=== PATIENT | female | born 1955 | race Caucasian/White ===

== ENCOUNTER → 2023-07-08 10:03 | Outpatient (REF) | payer MEDICARE, SELFPAY | LOC: RAD 10:03 | PROVIDERS: ATTENDING PHYSICIAN Family Medicine | DX: M81.0 Age-related osteoporosis without current pathological fracture (principal) | CPT/HCPCS: 77080 ==

== ENCOUNTER → 2023-09-30 06:28 | Day surgery (SDC) | payer MEDICARE, SELFPAY | LOC: GI 06:28 | PROVIDERS: ATTENDING PHYSICIAN Internal Medicine Gastroenterology; FAMILY PHYSICIAN Internal Medicine | DX: R19.4 Change in bowel habit (principal); K64.8 Other hemorrhoids; K57.30 Diverticulosis of large intestine without perforation or abscess without bleeding | CPT/HCPCS: 45330 ==

== ENCOUNTER → 2024-01-07 11:13 | Outpatient (REF) | payer MEDICARE, SELFPAY | LOC: WDC 11:13 | PROVIDERS: ATTENDING PHYSICIAN Family Medicine | DX: Z12.31 Encounter for screening mammogram for malignant neoplasm of breast (principal) | CPT/HCPCS: 77063; 77067 ==

== ENCOUNTER → 2024-03-18 11:01 | Outpatient (REF) | payer SELFPAY | LOC: RAD 11:01 | PROVIDERS: ATTENDING PHYSICIAN Family Medicine | DX: Z00.00 Encounter for general adult medical examination without abnormal findings (principal); E78.00 Pure hypercholesterolemia, unspecified | CPT/HCPCS: 75571 ==

== ENCOUNTER 2024-11-07 15:59 | Inpatient (IN) | payer MEDICARE, SELFPAY ==
[2024-11-07] VITALS (20 sets, daily range): BP systolic 117–221; BP diastolic 66–95; BMI 20.6
--- NOTE | 2024-11-07 15:08 | ED.GENMED ---
History of Present Illness
General
Chief Complaint: Dizziness
Source: patient
Exam Limitations: none
Time Seen by Provider: 11/07/24 15:00
Nursing documentation reviewed up to this point in time: agreed with
History of Present Illness
History of Present Illness:
Patient presents to ED secondary to sudden onset of dizziness starting around 1:30 PM, shortly after having completed grouting inside her house. Since then, shortly afterwards, patient also started to experience left lower leg numbness/heaviness
sensation. Denies nausea or vomiting. Denies headache. Denies difficulty with speech. Denies chest pain or palpitations. Denies neck pain. Denies recent illness. Denies previous history of similar symptoms. Denies any abnormal sensation in
her arms.
Past History
Past History
ED Past Medical History: Other (migraines, tonie-facial spasms, diverticulitis)
ED Past Surgical History: Bowel resection, Orthopedic and Other (Laparoscopy/endometriosis)
Social History
Tobacco: Non-smoker
Personal:
Living: with family
Employment: Employed
Family History
Family History: Other (Noncontributory); Negative Early CAD
Review of Systems
Review of Systems
Allergies reviewed?: Yes
All Other Systems: ROS reviewed and negative except as documented in HPI and ROS
Constitutional: Reports no symptoms; Denies fever
Cardiac: Reports no symptoms
ABD/GI: Reports no symptoms
Musculoskeletal: Reports no symptoms
Skin: Reports no symptoms
Neurological: Reports dizzy, weakness and numbness; Denies headache
Phy Exam
Physical Exam
Physical Exam:
Physical Exam
General: mild distress, not acutely ill. afebrile
Head: nc/at. eomi
Neck: supple. normal range of motion.
Heart: s1/s2 regular rate and rhythm
Lungs: no acute respiratory distress. clear bilaterally
Abdomen: normal bowel sounds. not tender.
Neuro: alert and oriented x 3. normal speech. LLE motor weakness (4/5). no facial droop
Skin: no rash
Psychiatric: well kept. interactive and cooperative
Extremities: no edema. no calf tenderness.
Course
Orders/Labs/Results
Orders:
Orders
11/07/24 14:58
CT HEAD STROKE ALERT W/o Cont Urgent
Comment:
Reason For Exam: dizziness, spinning sensation, numb/tingling LLE
11/07/24 14:59
Electrocardiogram (*1) Urgent
Reason for Study: Other
Other Reason for Exam: Possible Stroke
Cardiac Monitoring- Treatment ONCE
EKG- Treatment ONCE
Vital Signs As Directed
Frequency: Other
Weight As Directed
Frequency: Once
Comment: ZERO STRETCHER SCALE FOR ACCURATE WEIGHT
11/07/24 15:07
CT HEAD/NECK ANG STROKE ALERT Urgent
Comment:
Reason For Exam: dizziness with LLE weakness/numbness
11/07/24 15:14
Complete Blood Count/With Diff Urgent
Comprehensive Metabolic Panel Urgent
PTT Urgent
Prothrombin Time Urgent
Troponin I Urgent
11/07/24 15:16
HydrALAZINE [Apresoline] 10 mg IV NOW STA
Tenecteplase [Tnkase] 13 mg Syringe [Syringe Non-Pump] 0 ml IV NOW
Provider explained risk/benefits to patient &/or caregiver?: Yes
Blood pressure: 196/94
11/07/24 15:20
HydrALAZINE [Apresoline] 20 mg .ROUTE .STK-MED ONE
11/07/24 15:30
MethylPREDNISolone PF [Solu-Medrol Pf] 250 mg IV DAILY
11/07/24 15:44
Admit/Transfer Patient As Directed
Co-Sign Provider:
Level of Care: Inpatient admission
Assign to:: ICU
Physician / Group: Navid
Diagnosis: CVA
Reason for Hospitalization: CVA
Expected length of stay greater than two midnights?: Yes
ELOS- Estimated Length of Stay in days: 2
I certify the patient meets the requirements for IP care: Yes
PRN Pain Medication Management As Directed
May give lesser potent ordered pain med per pt: Yes
preference::
Protocol:: Medication orders for pain may be administered in a
manner that supports deferring to patient preference
when the pt is:
- Requesting an ordered lesser potent pain medication.
Least to most potent pain medications are defined
as: acetaminophen < NSAID < tramadol < opioids
(morphine, oxycodone, hydromorphone).
- Requesting a lesser dose of the same medication IF
ORDERED.
- Requesting a less intrusive route of administration
if both routes are prescribed by the provider (PO <
IV).
11/07/24 15:45
Code Status As Directed
Resuscitation Status: Full Code
11/07/24 15:57
Add On- LAB Routine
Tests Added?: PTH
11/07/24 15:58
Urinalysis Reflex To Culture Urgent
Date Specimen was Collected: 11/07/24
Time Specimen was Collected: 15:48
Urine Microscopic Reflex Cult Urgent
Urine Culture Urgent
PAUL Source: U
Specimen Description:
Date Specimen was Collected: 11/07/24
Time Specimen was Collected: 15:48
11/07/24 16:38
Acetaminophen [Tylenol] 650 mg PO Q4HPRN PRN
Labetalol HCl [Trandate] 10 mg IV Q6HPRN PRN
11/07/24 16:38
Echo 2D MMode Color/Doppler Routine
Reason for Study: stroke
Electrocardiogram (*1) Routine
Reason for Study: TIA/Stroke
Case Management Consult Once
Case Management Consult: Discharge Planning
DIETARY IP CONSULT Routine
Reason for Consult: stroke/TIA
Baggage Agent Supervisor Consult Routine
Consulting Provider: Rowena Fernando
Was physician already notified: Yes
Reason for consult: CVA
NEUROLOGY CONSULT Urgent
Consulting Provider: Robinson Miles
Was physician already notified: Yes
Reason for consult: CVA
B2B Sales Manager Urgent
MR Brain Without Contrast Routine
Comment: complete 24 hrs post tenecteplase administration
Reason For Exam: possible stroke, status post tenecteplase
Recent pill cam endoscopy?: No
Hemetest Stools As Directed
Comment: hemoccult all stools if patient received tenecteplase
NIH Stroke Scale As Directed
Directions: Other
Comment: NIH stroke Scale to be completed prior to thrombolytic administration, then every 1 hour for 2
hours, then every shift and with change in condition and/or mental status.
Neurological Checks As Directed
Frequency: Per unit guidelines
Additional Instructions:: after start of thrombolytic therapy:
q15min x 2 hrs, q30min x 6 hrs, q1h x 16 hrs, q4h x 24 hrs, then every shift and
with any changes.
Notify MD As Directed
Notify physician if: - Any deterioration, change in neurological status, development of severe headache,
nausea and vomiting, or with any signs of bleeding. (see guidelines for suspected
intracerebral hemorrhage).
- If intracranial hemorrhage is suspected or confirmed by imaging, anticipate need for
osmotic diuretic to maintain euvolemia.
Notify MD As Directed
Notify physician if: Glucose less than 70 or greater than 180.
Anticipate corrective insulin orders.
Notify MD As Directed
Notify physician if: SBP not at goal within 30 minutes of prn LABETALOL administration.
notify provider to initiate continuous infusion of nicardipine or clevidipine.
Notify MD As Directed
Notify physician if: unable to obtain MRI of head within 22-32 hours of tenecteplase administration
- contact Neurology for order for CT of head without contrast
Patient Education As Directed
Type: Stroke education packet
Comment: provide to patient and family
Pneumatic Compression Sleeves As Directed
Type: Knee high
Precautions As Directed
Type of Precautions: Bleeding
Comment: post Bleeding Precaution sign at bedside (if patient received tenecteplase)
Swallow Screening CVA/TIA ONLY As Directed
Comment: NPO until swallow screening completed
If patient FAILS swallow screening:: NPO and Speech consult and aspiration precautions
If patient PASSES swallow screening, diet:: Cholesterol Lowering
Above diet order entered?: Yes- passed screening
Thrombolytic Precautions As Directed
Thrombolytic Precautions:: Kimball bleeding precautions. Minimize invasive procedures and venipunctures,
avoid IM injections and over-handling patient, and check all puncture sites for
bleeding. Assess the patient and notify provider for signs and symptoms of
internal or serious bleeding, such as changes in vital signs or evidence of blood
in the urine or stool.
Additional instructions: Hemocult all stools.
Apply direct pressure or pressure dressing to any compressible puncture sites.
No ABG sampling or Conner insertion after Tenecteplase administration for 24 hours,
unless directed by the Neurologist/Attending.
Vital Signs As Directed
Frequency: q15m
Call for:: BP greater than 180/105 mmHg or less than 100/60 mmHg
Additional Instructions:: after start of thrombolytic therapy:
q15min x 2 hrs, q30min x 6 hrs, q1h x 16 hrs, q4h x 24 hrs, then every shift and
with any changes.
Ot Eval And Treat Routine
Physiatry Consult Routine
Consulting Provider: Thee Duggan
Was physician already notified: Yes
Reason for consult: stroke/TIA
Pt Eval And Treat Routine
Activity Level: Out of Bed-Early Mobility
Speech Therapy Eval & Treat Routine
DX Deep Vein Thrombosis Video Routine
11/08/24 06:00
Cardiovascular Evaluation IN AM
Complete Blood Count/No Diff IN AM
Comprehensive Metabolic Panel IN AM
Comment: If not done in the ED
Glycohemoglobin (HgbA1c) IN AM
Comment: If not done in the ED
Magnesium IN AM
PTT IN AM
Prothrombin Time IN AM
TSH Reflex To Free T4 IN AM
Abnormal Lab Results
11/07/24 11/07/24
15:14 15:58
Lymphocytes % 19.7 L %
(20.5-51.1)
Sodium 132 L mmol/L
(135-145)
Creatinine 0.5 L mg/dL
(0.6-1.0)
Glucose 104 H mg/dl
(70-99)
Calcium 10.3 H mg/dl
(8.4-10.2)
Albumin 5.3 H g/dl
(3.5-5.0)
Urine Ketones 1+ A
(Negative)
Ur Occult Blood Reflex 1+ A
(Negative)
Leukocyte Esterase Rfl 1+ A
(Negative)
Urine Bacteria (Reflex) Moderate A
(Negative)
11/07/24 15:14
11/07/24 15:14
Vital Signs
Initial and Last Documented VS:
Initial Vital Signs
Temp Pulse Resp BP Pulse Ox
97.8 F 72 18 171/95 100
11/07/24 14:51 11/07/24 14:51 11/07/24 14:51 11/07/24 14:51 11/07/24 14:51
Last Documented Vital Signs
Temp Pulse Resp BP Pulse Ox
97.6 F 69 16 149/70 99
11/07/24 16:41 11/07/24 16:30 11/07/24 16:30 11/07/24 16:00 11/07/24 16:30
MDM/Problems Addressed
MDM/Problems Addressed:
Stroke alert activated. Patient evaluated immediately at bedside along with neurology, Dr. Miles. CT/CTA head/neck ordered.
CT head: No acute findings. Patient within treatment window for TNK administration. Bleeding risk, up to 6%, discussed with patient and spouse by Dr. Miles.
Patient will be admitted to ICU for further evaluation and treatment.
Critical care statement: A total of 40 minutes of critical care time was provided for this patient. This includes management of unstable vital signs, evaluation of the patient at bedside, reviewing the patient's pertinent medical records, discussion
with consultants, review of old EKGs and review of pertinent medical records. This time with separate from time utilized to perform the aforementioned documented procedures
*Pulse Oximetry
SaO2: 100
Oxygen Mode of Delivery: Room air
Patient hypoxic: no
*EKG
Interpreted by ED Provider?: Yes
EKG Intrepretation Date: 11/07/24
Heart Rate: 61
Rate: normal
Rhythm: sinus
[place]: normal axis
Interval: normal interval
*Critical Care Note
Total Time (30-74mins, 75-104mins- exclusive of procedures): 40 min
ED Attending Note
-
Portions of this chart may have been created with voice recognition software.� Occasional wrong word or��sound alike� substitutions may have occurred due to the inherent limitations of voice recognition software.
Discharge Plan
Departure
Patient Disposition: Admit
Date of Disposition: 11/07/24
Time of Disposition: 15:28
Admit to: ICU
Presentation/result/management discussed w/ accepting MD/DO: Hospitalist
Discharge Problem:
Dizziness, Acute CVA (cerebrovascular accident)
Interventions
Interventions:
*Risk Screen - Suicide Last Done: 11/07/24 14:51
*General Assessment Last Done: 11/07/24 14:51
*Neglect/Abuse Screening Last Done: 11/07/24 14:55
*ED- Fall Risk Assessment Last Done: 11/07/24 14:55
*ED COVID-19 Vaccine History Last Done: 11/07/24 14:51
*Nursing Disposition Last Done: 11/07/24 16:10
ED- Neurological Assessment Last Done: 11/07/24 15:00
ED- Cardiac Assessment Last Done: 11/07/24 14:55
ED Swallowing Screen Last Done: 11/07/24 15:40
Discharge Date and Time
Discharge Date/Time: 11/07/24 16:10
[2024-11-07] MEDS: TNKASE 2.6 MG IV (15:23)
--- NOTE | 2024-11-07 15:25 | CON.NEURO ---
Neuro Assessment/Plan
Assessment
Acute ischemic stroke, mild L deficits however she is an active swimmer and this would be disabling for her so we decide to TNK even though NIHSS is 1.
the Vertigo is vestibular neuritis on exam so dizziness is not a stroke symptom for LKN
Initial SBP 196 and I ordered hydralazine 10 but recheck it came down to 177 spontaneously, so it was not given
acute vestibular neuritis left ear - constant right beating nystagmus is a cortical correction for the abnormal vestibular signal which are dragging her eyes to the left. Solumedrol 250 daily up to 5 days
Plan
Admit to MICU for 24 hours of frequent neurochecks.�
neurochecks q1, Frequent vital signs Q15min x 2hrs, then Q30min x 6hrs, then Q1H x 16hrs until stable from the start of TNK.�
�tele, accuchecks/ISS. Repeat Head CT in 24 hours
Blood pressure goals: <180/105 and MAP 80-100� in the acute period.� If BP elevated for 2 readings, preferred agents include IV labetalol or nicardipine.� Vasopressors as necessary to maintain MAP and CPP.�
Glucose goals: Maintain euglycemia using sliding scale insulin. If glucose >180 for two consecutive readings, please use MICU insulin protocol.�
Temperature goals: maintain normothermia�
Diagnostic tests: MRI brain without contrast, ECHO with bubble.�
35' crit emergently evaluating patient, physical exam, and independently reviewing Head CT in control room, TNK decision, d/w patient and for TNK consent, orders, documentation, d/w other providers,
Consultation
Order
Date of Consultation: 11/07/24
Requesting Provider: Lara
Reason for Consult: stroke alert
Subjective/Objective
Subjective Data
Date of Service: November 07, 2024
from ED notes:
Patient presents to ED secondary to sudden onset of dizziness starting around 1:30 PM, shortly after having completed grouting inside her house. Since then, shortly afterwards, patient also started to experience left lower leg numbness/heaviness
sensation. Denies nausea or vomiting. Denies headache. Denies difficulty with speech. Denies chest pain or palpitations. Denies neck pain. Denies recent illness. Denies previous history of similar symptoms. Denies any abnormal sensation in
her arms.
patient reports mild dizziness this morning, worsening in the afternoon.
Objective Data
Vital Signs
Temp Pulse Resp BP Pulse Ox
36.6 C 71 18 196/94 100
11/07/24 14:51 11/07/24 15:04 11/07/24 15:04 11/07/24 15:04 11/07/24 15:11
Patient Allergies
environmental Allergy (Uncoded 11/07/24 14:54)
sneezing
Physical Exam
-
AAOx3, speech clear, language intact
VFF, EOMI, face symm
constant RIGHT beating nystagmus. dizziness worsens with right gaze, and ameliorates with left gaze
left pronator drift
LUE/LE subtle weakness
Medications
-
Home Medications
�Medication �Instructions �Recorded
calcium 600 mg (as carbonate)-vit 1 tab PO DAILY 01/30/17
D3 20 mcg (800 unit) chewable
tablet (Caltrate plus D)
cetirizine 10 mg tablet 10 mg PO DAILYPRN PRN allergies 01/30/17
naratriptan 1 mg tablet (Amerge) 1 mg PO DAILYPRN PRN migraine 01/30/17
omega 8-kmc-lmm-fish oil 300 1 cap PO DAILY 01/30/17
mg-1,000 mg capsule (Fish Oil)
valacyclovir 500 mg tablet 500 mg PO DAILYPRN PRN cold sores 01/30/17
denosumab 60 mg/mL subcutaneous 60 mg SQ [id number] 12/06/20
syringe (Prolia)
[2024-11-07 15:33] LABS: Hematocrit 40.4 % (37.0-47.0); Hemoglobin 13.7 g/dL (12.0-16.0); Mean Corp Hgb Conc. 33.9 g/dL (33.0-37.0); Mean Corpuscular Volume 88.8 fL (81.0-99.0); Nucleated Red Blood Cells % 0 %; Platelet Count 311 10^3/uL (130-400); Red Cell Dist. Width 12.1 % (11.5-14.5)
[2024-11-07 15:38] LABS: INR 0.90; PT 12.5 Sec (11.4-14.6)
[2024-11-07 15:39] LABS: APTT 29.3 Sec (23.4-35.0)
[2024-11-07 15:48] LABS: ALT (SGPT) 25 U/L (0-35); AST (SGOT) 28 U/L (14-36); Albumin 5.3 g/dl (3.5-5.0); Alkaline Phosphatase 53 U/L (38-126); Blood Urea Nitrogen 17 mg/dl (7-17); Calcium 10.3 mg/dl (8.4-10.2); Carbon Dioxide 25 mmol/L (22-30); Estimated Creatinine Clearance 72 ml/min; Glucose 104 mg/dl (70-99); Total Protein 8.1 g/dl (6.3-8.2); eGFR > 60.00
--- NOTE | 2024-11-07 15:49 | HPS.HSE ---
Family Physician
-
Family Physician:
Chief Complaint
-
dizziness, LLE numbness
History of Present Illness
69yo F with PMHX of osteoporosis, migraine headaches with occasional aura, atopic D/O came with acute onset of dizziness and vertigo with accompanied LLE numbness and tingling. Started with lightheadedness appr at 12-12:30pm on the day of admission,
then progressed to vertigo. In ED seen by neurologist with stroke code and deemed to be a candidate for TNK. After administration of TNK - LLE numbness resolved. Patient has no other complains, however noticed to have high blood pressure before
admission that is not typical for her. Also feeling nervous and with some shills, however no respiratory, GI or urinary symptoms reported. Has family Hx of stroke in mother
Medical History
Past Medical History
Past Medical History: Reports Other
Additional Past Medical History:
See above
Past Surgical History: Reports None
Social History
Tobacco: Non-smoker
Alcohol: None
Drug: None
Personal:
Family History
Family History: Other (Se above)
Allergies / Home Medications
Allergies reflects when Allergies were last updated in [facility].
Home Medications with original date entered in [facility]
Allergy/Medication List:
Allergies
Allergy/AdvReac Type Severity Reaction Status Date / Time
environmental Allergy sneezing Uncoded 11/07/24 14:54
Home Medications
calcium 600 mg (as carbonate)-vit D3 20 mcg (800 unit) chewable tablet (Caltrate plus D) 1 tab PO DAILY 01/30/17
cetirizine 10 mg tablet 10 mg PO DAILYPRN PRN allergies 01/30/17
naratriptan 1 mg tablet (Amerge) 1 mg PO DAILYPRN PRN migraine 01/30/17
omega 9-mkc-fat-fish oil 300 mg-1,000 mg capsule (Fish Oil) 1 cap PO DAILY 01/30/17
valacyclovir 500 mg tablet 500 mg PO DAILYPRN PRN cold sores 01/30/17
denosumab 60 mg/mL subcutaneous syringe (Prolia) 60 mg SQ [id number] 12/06/20
Review of Systems
-
History Source: Patient
A 12 point ROS was completed and negative except as noted: Yes
Constitutional: Reports See HPI
Physical Exam
Vital Signs
Vital Signs
Temp Pulse Resp BP Pulse Ox
97.8 F 67 12 155/77 100
11/07/24 14:51 11/07/24 15:30 11/07/24 15:30 11/07/24 15:26 11/07/24 15:30
Physical Exam
General: No Apparent Distress, Comfortable and Conversant
HEENT: NormoCephalic, Anicteric and Moist mucous membranes
Respiratory: Clear; No Wheezes or Crackles
Cardiac: S1/S2 and Regular Rhythm; No Bradycardia or Murmur
GI: Soft, Non Tender and Non Distended
Musculoskeletal: No Clubbing, No Cyanosis and No Edema
Skin: Warm; No Rash or Jaundice
Neuro: Awake, Alert, Oriented, AO x 3, No Motor Deficits, Nonfocal/grossly intact and Tremors
Psych: Calm
Laboratory Results
-
11/07/24 15:14
11/07/24 15:14
Laboratory Results
PT 12.5 Sec (11.4-14.6) 11/07/24 15:14
INR 0.90 11/07/24 15:14
APTT 29.3 Sec (23.4-35.0) 11/07/24 15:14
Total Bilirubin 0.5 mg/dl (0.2-1.3) 11/07/24 15:14
AST 28 U/L (14-36) 11/07/24 15:14
ALT 25 U/L (0-35) 11/07/24 15:14
Alkaline Phosphatase 53 U/L (38-126) 11/07/24 15:14
Data Reviewed
-
Lab Data: Labs Reviewed by me
Impression/Plan
-
A/P:
#CVA
s/p TNK
ICU admission
TNK precautions
Neurochecks and if change - CT head stat
Check TSH, HGBa1c, lipids
Neurology consult
MRI brain
Echo and telemetry
CTA without LVO and no clinically significant carotid stenosis. Aberrant origin of the right subclavian artery.
Hold ASA for 24h
start Lipitor 40mg
#Chills
not febrile, no WBC elevation
check UA
#Hypercalcemia
mild
Check PTH
can be dehydration
Chest XR
#Migraines
hold triptan
#Atopic D/O
#Osteoporosis
cont meds upon d/c
DVT ppx SCDs
Full code
I have spent at least 55min critical care time reviewing chart, test results, communication with consultants and providing direct patient care
[2024-11-07 15:55] LABS: Chloride 101 mmol/L (98-107); Potassium 4.4 mmol/L (3.5-5.1); Sodium 132 mmol/L (135-145)
[2024-11-07 16:00] LABS: Troponin I < 0.012 ng/ml
[2024-11-07 16:13] LABS: Urine Character Clear (Clear)
[2024-11-07] MEDS: SOLU-MEDROL PF 250 MG IV (16:21)
[2024-11-07 16:26] LABS: Urine Red Blood Cell 0-2 /HPF (0-2); Urine Squamous Cell 16-20 /LPF (Few)
[2024-11-07 16:51] LABS: Glucose - Point of Care 102 mg/dl (70-99)
--- NOTE | 2024-11-07 18:33 | PTCARENOTE ---
Received pt from ED with CVA diagnosis. TNK given in ED at 1523 with NIH-[address] Miles, Neurologist, for LLE weakness. Upon arrival to ICU, NIHSS 0. Full assessment as charted, HTN continues. at bedside. Pt oriented to unit.
[2024-11-07] MEDS: TYLENOL 650 MG PO (22:16)
[2024-11-08] VITALS (16 sets, daily range): BP systolic 96–128; BP diastolic 43–96; BMI 20.5
--- NOTE | 2024-11-08 00:30 | PTCARENOTE ---
Pt GCS 15, PERRLA 3, TIRADO 5/5, NIH remains 0. OOB to bathroom with assist. Tylenol given for mild headache. Pt resting comfortably. Will monitor.
[2024-11-08 04:28] LABS: INR 0.97; PT 13.2 Sec (11.4-14.6)
[2024-11-08 04:29] LABS: APTT 23.3 Sec (23.4-35.0)
[2024-11-08 04:30] LABS: Hematocrit 39.6 % (37.0-47.0); Hemoglobin 13.6 g/dL (12.0-16.0); Mean Corp Hgb Conc. 34.3 g/dL (33.0-37.0); Mean Corpuscular Volume 89.0 fL (81.0-99.0); Platelet Count 302 10^3/uL (130-400); Red Cell Dist. Width 12.1 % (11.5-14.5)
[2024-11-08 04:45] LABS: ALT (SGPT) 23 U/L (0-35); AST (SGOT) 24 U/L (14-36); Albumin 4.7 g/dl (3.5-5.0); Alkaline Phosphatase 43 U/L (38-126); Blood Urea Nitrogen 17 mg/dl (7-17); Calcium 9.0 mg/dl (8.4-10.2); Carbon Dioxide 24 mmol/L (22-30); Chloride 104 mmol/L (98-107); Estimated Creatinine Clearance 72 ml/min; Glucose 136 mg/dl (70-99); HDL Cholesterol 110 mg/dl; LDL Cholesterol, Calculated 158 mg/dl; Magnesium 2.2 mg/dl (1.6-2.3); Potassium 4.6 mmol/L (3.5-5.1); Sodium 134 mmol/L (135-145); Total Protein 7.1 g/dl (6.3-8.2); Very Low Density Lipoprotein 11 mg/dl (0-30); eGFR > 60.00
--- NOTE | 2024-11-08 07:16 | CON.INTV ---
Consultation
Consultation Request
Date/Time Consultation Requested: 11/08/24
Date/Time Consultation Performed: 11/08/24
Performing Provider: Abdullahi
Reason for Consultation: CVA
Medical History
-
History of Present Illness:
Patient is a 69-year-old female with previous history of osteoporosis, migraines, presenting to ER with complaints of dizziness and vertigo with lower extremity weakness and tingling. Stroke alert called in the ER, was deemed a candidate for
TNK, admitted to ICU posttreatment.
Past Medical History
Past Medical History: Other (see list below)
Social History
Tobacco: Non-smoker
Alcohol: None
Drug: None
Family History
Family History: Reviewed & Not Pertinent
Allergies / Home Medications
Allergies
Allergy/AdvReac Type Severity Reaction Status Date / Time
environmental Allergy sneezing Uncoded 11/07/24 14:54
Home Medications
�Medication �Instructions �Recorded �Confirmed �Last Taken �Type
calcium 600 mg (as carbonate)-vit 1 tab PO DAILY 01/30/17 12/06/20 01/29/17 History
D3 20 mcg (800 unit) chewable
tablet (Caltrate plus D)
cetirizine 10 mg tablet 10 mg PO DAILYPRN PRN allergies 01/30/17 12/06/20 01/29/17 History
naratriptan 1 mg tablet (Amerge) 1 mg PO DAILYPRN PRN migraine 01/30/17 12/06/20 01/27/17 History
omega 8-pnz-yrg-fish oil 300 1 cap PO DAILY 01/30/17 12/06/20 01/29/17 History
mg-1,000 mg capsule (Fish Oil)
valacyclovir 500 mg tablet 500 mg PO DAILYPRN PRN cold sores 01/30/17 12/06/20 1 Week Ago History
~01/23/17
denosumab 60 mg/mL subcutaneous 60 mg SQ [id number] 09/28/21 09/28/21 Unknown History
syringe (Prolia)
Review of Systems
-
History Source: Patient
All other systems: Negative unless noted
Vitals / Labs / Diagnostic Testing
Vital Signs
Temp Pulse Resp BP Pulse Ox
97.8 F 58 17 127/66 94
11/07/24 21:00 11/08/24 06:00 11/08/24 06:00 11/08/24 06:00 11/08/24 06:00
Lab Data
11/08/24 03:38
11/08/24 03:38
Laboratory Results
11/07/24 11/08/24
15:14 03:38
PT 12.5 13.2
INR 0.90 0.97
APTT 29.3 23.3 L
Diagnostic Testing:
Physical Exam
-
HEENT: Normocephalic, Anicteric and Moist Mucous Membranes
Cardiovascular: S1/S2 and Regular Rhythm
Respiratory: Clear and Non-Labored Respirations
GI: Soft, Non Distended and Non Tender
Neurology: Awake, Alert, Oriented and No Motor Deficits
Skin: Warm, Dry and Good Color
General: Comfortable and Other (NAD)
Assessment
-
Patient is a 69-year-old female with previous history of osteoporosis, migraines, presenting to ER with complaints of dizziness and vertigo with lower extremity weakness and tingling. Stroke alert called in the ER, was deemed a candidate for
TNK, admitted to ICU posttreatment.
Suspected CVA status post TNK
Dizziness/vertigo
Lower extremity numbness and tingling
Conditions present prior to admission
Osteoporosis
Migraine headaches with aura
Atopic dermatitis
Plan
s/p TNK for CVA
Neuroimaging reviewed
Neuro consult obtained�
Observe overnight following administration, careful watch for signs of bleeding
Follow CBC, neurovascular checks
Repeat MRI in 24 hours from initial dose given in ER
�
Prior cardiac history includes--none
W/u while inpatient
Monitor on telemetry
�
Currently stable on RA
No prior h/o lung disease
Aspiration precautions
CXR reviewed--no acute disease
�
Restart diet per protocol
Aspiration precautions
Speech consult for post CVA evaluation
GI prophylaxis if indicated
�
Creat at baseline, follow I/Os, urine output
No prior known history of renal disease
Replete electrolytes as needed
�
No signs/symptoms suspicious for infectious etiology at this time. �
Will observe off antibiotics for now.
�
DVT ppx held, SCDs
PT/OT evaluations, SNF placement if indicated
�
Transfer to floors following MRI, we will sign off upon transfer
Diagnostic Data
Chest X-Ray: 11/07/24-No acute cardiopulmonary abnormality.
CT Scan: CTA Head: No significant arterial stenosis. No aneurysm.
CTA Neck: No significant arterial stenosis. 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
Echo:
PFT's:
Reports and relevant images were personally reviewed.
Critical Care time 50 mins -- The patient is admitted for acute critical illness for the treatment of vital organ failure and/or prevention of further life-threatening conditions. Total care includes time spent in review of history, physical exam,
medications, hemodynamic/ventilator parameters, laboratory data, imaging and discussion with house staff, pharmacy, respiratory therapy, street supervisor, and nursing.
[2024-11-08] MEDS: SOLU-MEDROL PF 250 MG IV (07:24)
--- NOTE | 2024-11-08 07:49 | W.PN.HOSP.TC ---
Addendum entered and electronically signed by Darrel Shoemaker MD 11/08/24 17:12:
please dont use billing under this note, use DC billing order instead
Addendum entered and electronically signed by Darrel Shoemaker MD 11/08/24 07:52:
#acute vestibular neuritis left ear
Steroids as per neurologist
Original Note:
Today's Communication/Plan
-
Dizziness much improved
MRI
Echo
might need repeated HEad CT if no MRI till 3pm
PT/OT
Assessment / Plan
Assessment / Plan
69yo F with PMHX of osteoporosis, migraine headaches with occasional aura, atopic D/O, L fascial hemiparesis s/p decompressive Sx came with acute onset of dizziness and vertigo with accompanied LLE numbness and tingling. Started with lightheadedness
appr at 12-12:30pm on the day of admission, then progressed to vertigo. S/P TNK in ED.
A/P:
#CVA
s/p TNK
ICU admission
TNK precautions
Neurochecks and if change - CT head stat
HGBa1c pensing
LDL 158
Neurology consult
MRI brain
Echo
telemetry with NSR
CTA without LVO and no clinically significant carotid stenosis. Aberrant origin of the right subclavian artery.
Hold ASA for 24h
start Lipitor 40mg
#Subclinical hyperthyroidism
inimal TSH depression with normal FT4 - repeat TFT wit PCP in 2 weeks upon d/c
#Chills
resolved, most likely 2/2 anxiety on admission
no fever, no leukocytosis
#Asymptomatic bacteriuria
no indication to treat - see above
#Hypercalcemia
resolved
PTH WNL
can be dehydration
#Migraines
hold triptan
#Atopic D/O
#Osteoporosis
cont meds upon d/c
DVT ppx SCDs
Full code
I have spent at least 51min critical care time reviewing chart, test results, communication with consultants and providing direct patient care
Anticipated Discharge: Within 24 hours
Subjective/Interval History
-
Date of Service: November 08, 2024
Objective Data
-
Labs:
Laboratory Results
11/08/24
03:38
WBC 5.8
Hgb 13.6
Hct 39.6
Plt Count 302
PT 13.2
INR 0.97
APTT 23.3 L
Sodium 134 L
Potassium 4.6
Chloride 104
Carbon Dioxide 24
BUN 17
Creatinine 0.5 L
Glucose 136 H
Calcium 9.0
Total Bilirubin 0.5
AST 24
ALT 23
Alkaline Phosphatase 43
Vital Signs:
Vital Signs
Temp Pulse Resp BP Pulse Ox
97.5 F 58 17 127/66 94
11/08/24 07:36 11/08/24 06:00 11/08/24 06:00 11/08/24 06:00 11/08/24 06:00
I&O
11/07/24 11/08/24 11/09/24
06:59 06:59 06:59
Intake Total 480 / 480
Balance 480 / 480
Review of Systems
-
History Source: Patient
All other systems: Reviewed and negative
Physical Exam
-
General: Well Nourished
HEENT: Normocephalic
Respiratory: Clear to Auscultation
Cardiac: Regular Rhythm
Musculoskeletal: No Clubbing, No Cyanosis and No Edema
Neuro: Awake, Alert, Oriented and AO x 3
Psych: Calm
[2024-11-08 08:17] LABS: Glycohemoglobin (HgbA1c) 5.3 % (4.0-5.6)
--- NOTE | 2024-11-08 09:07 | PTCARENOTE ---
Pt GCS 15, PERRLA 3, TIRADO 5/5, NIH remains 0. OOB to bathroom with assist. Pt resting comfortably. Plan of care discussed, call bush within reach.
--- NOTE | 2024-11-08 11:01 | PTOTSP ---
Addendum entered and electronically signed by ST Marilin 11/08/24 11:03:
*Aspiration risk is increased at this time pending workup for suspected CVA.
Original Note:
Speech Pathology
Clinical Swallow Evaluation
69F with admission for CVA workup s/p TNK presents with a functional oropharyngeal swallow. No overt s/s of aspiration on all consistencies trialed this date. CVA symptoms have resolved per patient. Awaiting MRI f/u after 3 pm today. No overt
concerns fo aspiration or dysphagia at this time. Pt denies cognitive or speech concerns, will await cognitive evaluation pending MRI.
Recommend:
1. Continue with regular textures, thin liquids
2. Meds as best tolerated
3. Reflux precautions re: pt endorses hx
4. CLINICAL LAB SPECIALIST service to follow up pending MRI results; IF MRI positive, will conduct cognitive communication evaluation in addition to dysphagia f/u
--- NOTE | 2024-11-08 11:55 | W.PN.NEURO.1 ---
Today's Communication / Plan
-
full recovery
Head CT 24 hrs
rx ASA 81, Plavix x21 days, and Lipitor 40
d/c steroids
Neuro Assessment/Plan
Assessment
head CT imgs rev'd, normal
CTA head/neck normal.
HDL 110, LDL 158
Acute ischemic stroke, mild L deficits however she is an active swimmer and this would be disabling for her so we decide to TNK even though NIHSS is 1. got TNK at 1523
the Vertigo is vestibular neuritis on exam so dizziness is not a stroke symptom for LKN
patient made a full recovery, no need for MRI, head CT ordered at 24 hrs as joint commission requirement.
rx ASA 81, Plavix x21 days, and Lipitor 40
acute vestibular neuritis left ear - constant right beating nystagmus is a cortical correction for the abnormal vestibular signal which are dragging her eyes to the left. resolved, d/c solumedrol
Subjective/Objective
Subjective Data
Date of Service: November 08, 2024
no vertigo
left sided weakness/tingling/numbness all resolved after TNK
Objective Data
Vital Signs
Temp Pulse Resp BP Pulse Ox
36.6 C 72 30 108/64 95
11/08/24 11:54 11/08/24 11:30 11/08/24 11:30 11/08/24 09:00 11/08/24 11:30
Lab Results
11/08/24 03:38
11/08/24 03:38
PT 13.2 Sec (11.4-14.6) 11/08/24 03:38
INR 0.97 11/08/24 03:38
APTT 23.3 Sec (23.4-35.0) L 11/08/24 03:38
Sodium 134 mmol/L (135-145) L 11/08/24 03:38
Potassium 4.6 mmol/L (3.5-5.1) 11/08/24 03:38
BUN 17 mg/dl (7-17) 11/08/24 03:38
Glucose 136 mg/dl (70-99) H 11/08/24 03:38
Calcium 9.0 mg/dl (8.4-10.2) 11/08/24 03:38
LDL Cholesterol, Calc 158 mg/dl 11/08/24 03:38
Patient Allergies
environmental Allergy (Uncoded 11/07/24 14:54)
sneezing
--- NOTE | 2024-11-08 12:44 | W.DCSUMMARY ---
Discharge Summary
Discharge Data
Date of Admission: 11/07/24
Date of Discharge: 11/08/24
-
Pending Results: No
Hospital Course
69yo F with PMHX of osteoporosis, migraine headaches with occasional aura, atopic D/O, L fascial hemiparesis s/p decompressive Sx came with acute onset of dizziness and vertigo with accompanied LLE numbness and tingling. Started with lightheadedness
appr at 12-12:30pm on the day of admission, then progressed to vertigo. S/P TNK in ED symptoms resolved. Also completed steroids for vestibular neuritis. As per neurologist: no need for MRI as it will not change mgmt. Patient would not be a
candidate for PFO closure if present due to age causing low RoPE score, so outpatient Echo can recommended as per neurologist. Schedule follow up with established neurologist MISTY for further management. repeat TFT wit PCP in 2 weeks upon d/c.
Head CT repeated without acute findings. Medcially stable for d/c on ASA/Statin indefinitely and Plavix for 21 days.
I have spent at least 51min critical care time reviewing chart, test results, communication with consultants and providing direct patient care
Patient was managed for:
#CVA
#Subclinical hyperthyroidism
#Chills
#Asymptomatic bacteriuria
#Hypercalcemia
#Migraines
#Atopic D/O
#Osteoporosis
#acute vestibular neuritis left ear
Discharge Plan
-
Patient Disposition: Home (Routine Discharge)
Discharge Diagnosis/Procedures: CVA
Diet: Low Cholesterol
Activity: As tolerated
Blood Work: repeat TFT with family doctor in 2 weeks upon d/c
Activity Restrictions/Additional Instructions:
Schedule follow up with established neurologist MISTY for further management: scheduling Echo, possible MRI brain
Referrals:
NONE,* [Family Provider, Internal Medicine]
Additional Discharge Medication Instructions: start Aspirin and Plavix on 11/09/24
Prescriptions:
New
aspirin 81 mg Tablet,Delayed Release (Dr/Ec)
81 mg PO DAILY Qty: 30 0RF
atorvastatin 40 mg Tablet
40 mg PO QPM Qty: 30 0RF
clopidogrel 75 mg Tablet
75 mg PO DAILY Qty: 21 0RF
Continued
cetirizine 10 MG tablet
10 mg PO DAILYPRN PRN (Reason: allergies)
valacyclovir 500 MG tablet
500 mg PO DAILYPRN PRN (Reason: cold sores)
Patient Comments:
TAKE 1 TABLET BY MOUTH TWICE A DAY FOR 3 DAYS NEEDED FOR HERPES OUTBREAK.
naratriptan [Amerge] 1 MG tablet
1 mg PO DAILYPRN PRN (Reason: migraine)
omega 1-xli-xes-fish oil [Fish Oil] 1 EACH capsule
1 cap PO DAILY
Caltrate 600 plus D 1 EACH tablet,chewable
1 tab PO DAILY
Prolia 60 MG/ML syringe
60 mg SQ [id number]
Discharge Orders:
Discharge Patient (As Directed); Ordered 11/08/24
Ordered By: Darrel Shoemaker
Discharge Date and Time
Print Language: UPPER SORBIAN
[2024-11-08] MEDS: PLAVIX 75 MG PO (15:08)
[2024-11-08] MEDS: ASPIR LOW (ENTERIC COATED) 81 MG PO (15:08)
[2024-11-08] MEDS: LIPITOR 40 MG PO (17:11)
--- NOTE | 2024-11-10 09:01 | CM ---
Discharged to home on 11/08/24 with no additional skilled services. Patient arranged for transport home.
== END 2024-11-08 17:36 | disposition home or self-care (01) | DRG 62 ==
LOC: ICU 15:59
PROVIDERS: ADMITTING PHYSICIAN Internal Medicine; CONSULT PHYSICIAN Internal Medicine; CONSULT PHYSICIAN Psychiatry & Neurology Clinical Neurophysiology; EMERGENCY PHYSICIAN Emergency Medicine
PROC: 3E03317 Introduction of Other Thrombolytic into Peripheral Vein, Percutaneous Approach (ICD-10-PCS; 2024-11-07)
DX: I63.9 Cerebral infarction, unspecified (principal); G81.94 Hemiplegia, unspecified affecting left nondominant side; R42 Dizziness and giddiness; E86.0 Dehydration; G43.109 Migraine with aura, not intractable, without status migrainosus; N80.9 Endometriosis, unspecified; M81.0 Age-related osteoporosis without current pathological fracture; E83.52 Hypercalcemia; H55.00 Unspecified nystagmus; H93.3X2 Disorders of left acoustic nerve; L20.9 Atopic dermatitis, unspecified; E05.90 Thyrotoxicosis, unspecified without thyrotoxic crisis or storm; R82.71 Bacteriuria; Z82.3 Family history of stroke; Z90.49 Acquired absence of other specified parts of digestive tract; Z87.19 Personal history of other diseases of the digestive system
CPT/HCPCS: 70450; 70496; 70498; 71045; 80053; 80061; 81003; 81015; 82962; 83036; 83735; 83970; 84439; 84443; 84484; 85025; 85027; 85610; 85730; 87086; 92610; 93005; 96374; 99291; J3101; Q9967

== ENCOUNTER → 2024-11-23 11:06 | Outpatient (REF) | payer MEDICARE, SELFPAY | LOC: HWRCS 11:06 | PROVIDERS: ATTENDING PHYSICIAN Family Medicine | DX: Z86.73 Personal history of transient ischemic attack (TIA), and cerebral infarction without residual deficits (principal) | CPT/HCPCS: 93306 ==

== ENCOUNTER → 2024-12-11 07:05 | Outpatient (REF) | payer MEDICARE, SELFPAY | LOC: MRI 07:05 | PROVIDERS: ATTENDING PHYSICIAN Nurse Practitioner; FAMILY PHYSICIAN Family Medicine | DX: I63.9 Cerebral infarction, unspecified (principal) | CPT/HCPCS: 70551 ==

== ENCOUNTER → 2025-01-08 10:49 | Outpatient (REF) | payer MEDICARE, SELFPAY | LOC: WDC 10:49 | PROVIDERS: ATTENDING PHYSICIAN Family Medicine | DX: Z12.31 Encounter for screening mammogram for malignant neoplasm of breast (principal) | CPT/HCPCS: 77063; 77067 ==